=== PATIENT | male | born 1950 | race Caucasian/White ===

== ENCOUNTER 2016-04-02 03:47 | Emergency (ER) | payer MEDICARE, BC ==
[2016-04-02] MEDS ORDERED: Aspirin Low Dose CHEW TAB* 81 MG PO ONE (04:19)
--- NOTE | 2016-04-02 04:48 | ED ---
Sean Espinoza Billy, scribed for Cristian Mao MD on 04/02/16 at 0423 . HPI Chest Pain - HPI Summary HPI Summary: Patient is a 66 year-old male coming to [facility] presenting with constant left anterior chest pain radiating down the left arm starting this morning at 0300. He also describes numbness and tingling in the LUE as well as anxiety due to his symptoms. He reports recent stressors: his 3 days ago. He also states he has had decreased sleep recently due to her passing. - History of Current Complaint Chief Complaint: EDChestPainROMI Time Seen by Provider: 04/02/16 04:17 Hx Obtained From: Patient Onset/Duration: Started Hours Ago, Still Present Time of Onset: 03:00 Timing: Constant Initial Severity: Moderate Current Severity: Moderate Pain Intensity: 6 Pain Scale Used: 0-10 Numeric Chest Pain Location: Left Anterior Chest Pain Radiates: Yes Chest Pain Radiates To:: Arm Aggravating Factor(s): Nothing Alleviating Factor(s): Nothing Associated Signs and Symptoms: Positive: Recent Stress, Numbness, Tingling - Allergy/Home Medications Allergies/Adverse Reactions: Allergies Allergy/AdvReac Type Severity Reaction Status Date / Time Sulfamethoxazole Allergy Unknown Verified 04/23/14 07:49 w/Trimethoprim Reaction [From Bactrim] Details PMH/Surg Hx/FS Hx/Imm Hx Endocrine/Hematology History: Denies: Hx Diabetes Cardiovascular History: Denies: Hx Hypertension, Hx Pacemaker/ICD Respiratory History: Denies: Hx Asthma History: Denies: Hx Renal Disease Sensory History: Denies: Hx Hearing Aid Psychiatric History: Denies: Hx Panic Disorder - Surgical History Surgery Procedure, Year, and Place: BRONCHOSCOPY Infectious Disease History: No Infectious Disease History: Denies: Traveled Outside the [place] in Last 30 Days - Family History Known Family History: Negative: Cardiac Disease - Social History Alcohol Use: Weekly Substance Use Type: Reports: None Smoking Status (MU): Never Smoked Tobacco Review of Systems Positive: Chest Pain Positive: Paresthesia, Numbness Positive: Anxious All Other Systems Reviewed And Are Negative: Yes Physical Exam Triage Information Reviewed: Yes Vital Signs On Initial Exam: Initial Vitals Temp Pulse Resp BP Pulse Ox 98.4 F 94 20 161/86 98 04/02/16 03:56 04/02/16 03:56 04/02/16 03:56 04/02/16 03:56 04/02/16 03:56 Vital Signs Reviewed: Yes Appearance: Positive: Well-Appearing, No Pain Distress Skin: Positive: Warm Eyes: Positive: [place] ENT: Positive: Hearing grossly normal Neck: Positive: Supple Respiratory/Lung Sounds: Positive: Clear to Auscultation, Breath Sounds Present Cardiovascular: Positive: RRR Abdomen Description: Positive: Nontender, Soft Bowel Sounds: Positive: Present Musculoskeletal: Positive: Strength/ROM Intact Neurological: Positive: Sensory/Motor Intact, Alert, Oriented to Person Place, Time Psychiatric: Positive: Affect/Mood Appropriate Diagnostics - Vital Signs Vital Signs Temp Pulse Resp BP Pulse Ox 04/02/16 03:56 98.4 F 94 20 161/86 98 - Laboratory Result Diagrams: 04/02/16 05:20 04/02/16 05:20 Lab Statement: Any lab studies that have been ordered have been reviewed, and results considered in the medical decision making process. - Radiology CXR Xray Interpretation: No Acute Changes Radiology Interpretation Completed By: ED Physician Re-Evaluation - Re-Evaluation First Eval Re-Evaluation Time: 06:55 - remains pain free Change: Improved Chest Pain Course/Dx - Diagnoses Provider Diagnoses: Chest pain Discharge - Discharge Plan Condition: Stable Disposition: HOME Patient Education Materials: Chest Pain (ED) Referrals: John No MD [Primary Care Provider] - Additional Instructions: RETURN TO THE EMERGENCY ROOM IF SYMPTOMS PERSIST OR WORSEN. The documentation as recorded by the Sean matta Billy accurately reflects the service I personally performed and the decisions made by , Cristian Mao MD.
[2016-04-02 05:32] LABS: Hematocrit 38 % (42-52); Hemoglobin 12.8 g/dl (14.0-18.0); Mean Corpuscular HGB Conc 34 g/dl (31-36); Mean Corpuscular Hemoglobin 30 pg (27-31); Mean Corpuscular Volume 88 fL (80-94); Mean Platelet Volume 9 um3 (7.4-10.4); Red Blood Count 4.31 10^6/ul (4.0-5.4); Red Cell Distribution Width 14 % (10.5-15); White Blood Count 7.1 10^3/ul (3.5-10.8)
[2016-04-02 05:54] LABS: Albumin 3.8 g/dL (3.2-5.2); BUN/Creatinine Ratio 18.6 (8-20); Calcium 8.7 mg/dL (8.6-10.3); EGFR African American 99.9 (>60); EGFR Non-African American 77.7 (>60); Potassium 3.7 mmol/L (3.5-5.0); Total Bilirubin 0.3 mg/dL (0.2-1.0); Total Protein 6.8 g/dL (6.4-8.9)
--- NOTE | 2016-04-02 08:01 | RAD ---
HISTORY: Chest pain COMPARISONS: Chair and February 02, 2014 VIEWS: 2: Frontal dual-energy and lateral views of the chest. FINDINGS: CARDIOMEDIASTINAL SILHOUETTE: The cardiomediastinal silhouette is normal. KWAN: The kwan are normal. PLEURA: The costophrenic angles are sharp. No pleural abnormalities are noted. LUNG PARENCHYMA: There is hyperinflation with flattening of the diaphragm and expansion of the AP diameter of the chest. ABDOMEN: The upper abdomen is clear. There is no subphrenic gas. BONES AND SOFT TISSUES: No bone or soft tissue abnormalities are noted. OTHER: None. IMPRESSION: HYPERINFLATION, CONSISTENT WITH COPD. NO ACTIVE CARDIOPULMONARY DISEASE.
[2016-04-02 09:18] VITALS: BP 119/62
== END 2016-04-02 09:17 | disposition home or self-care (01) ==
LOC: ED 03:47
DX: R07.9 Chest pain, unspecified (principal); R20.9 Unspecified disturbances of skin sensation; F41.9 Anxiety disorder, unspecified; F43.9 Reaction to severe stress, unspecified
CPT/HCPCS: 36415; 71020; 80053; 83605; 84484; 85025; 93005; 99284; A9270-GY

== ENCOUNTER 2018-04-03 09:33 | Emergency (ER) | payer MEDICARE, BC ==
[2018-04-03 09:59] VITALS: BP 142/80
[2018-04-03] MEDS ORDERED: Tetan/Diph/Pertus SYR(Tdap)* 0.5 ML SYR(BOOSTRIX) use SYR IM ONE (10:23)
[2018-04-03] MEDS ORDERED: Lidocaine 2% W/EPI 1:100,000* 20 ML MDV INJ ONE (10:24)
--- NOTE | 2018-04-03 10:36 | UC ---
Bite Injury/Animal HPI - HPI Summary HPI Summary: Patient is a 68-year-old male that was bitten his chin by a tenant's dog this a.m. The dog is a boxer and he bent over to pet it. He is having minimal pain. He is unsure of his last tetanus shot but thinks it has been more than 10 years. The dog's shots are apparently up-to-date. - History of Current Complaint Chief Complaint: UCLaceration Stated Complaint: DOG BITE Time Seen by Provider: 04/03/18 10:15 Hx Obtained From: Patient Severity Currently: Moderate Severity Initially: Mild Pain Intensity: 2 Pain Scale Used: 0-10 Numeric Onset/Duration: Sudden Onset Type of Bite: Pet Has Animal Been Immunized?: Yes Character: Full-Thickness Aggravating Factor(s): Nothing Alleviating Factor(s): Nothing Associated Signs And Symptoms: Positive: Negative Hx of Bite: Provoked by: - bending over to pet dog Animal Available for Observation: Yes Animal Control Notified: Yes - Allergies/Home Medications Allergies/Adverse Reactions: Allergies Allergy/AdvReac Type Severity Reaction Status Date / Time Sulfa (Sulfonamide Allergy Unknown Verified 04/03/18 10:00 Antibiotics) Reaction Details Home Medications: Home Medications Glucosamine Sulfate Dipot Chlr [Gnp Glucosamine Maximum S] 1,000 mg PO DAILY [History Confirmed 04/03/18] PMH/Surg Hx/FS Hx/Imm Hx Previously Healthy: Yes - Surgical History Surgical History: Yes Surgery Procedure, Year, and Place: BRONCHOSCOPY - Family History Known Family History: Positive: Hypertension Negative: Cardiac Disease - Social History Alcohol Use: Occasionally Substance Use Type: None Smoking Status (MU): Never Smoked Tobacco - Immunization History Most Recent Tetanus Shot: unknown Review of Systems All Other Systems Reviewed And Are Negative: Yes Constitutional: Positive: Negative Skin: Positive: Negative Eyes: Positive: Negative ENT: Positive: Negative Respiratory: Positive: Negative Cardiovascular: Positive: Negative Gastrointestinal: Positive: Negative Genitourinary: Positive: Negative Motor: Positive: Negative Neurovascular: Positive: Negative Musculoskeletal: Positive: Negative Neurological: Positive: Negative Psychological: Positive: Negative Physical Exam Triage Information Reviewed: Yes Appearance: Well-Appearing, No Pain Distress, Well-Nourished Vital Signs: Initial Vital Signs Temp 97.5 F 04/03/18 09:56 Pulse 65 04/03/18 09:56 Resp 16 04/03/18 09:56 BP 142/80 04/03/18 09:56 Pulse Ox 98 04/03/18 09:56 Vital Signs Reviewed: Yes Eyes: Positive: Conjunctiva Clear ENT: Positive: Hearing grossly normal. Negative: Nasal congestion, Nasal drainage, Tonsillar swelling, Tonsillar exudate, Muffled voice, Hoarse voice Neck: Positive: Supple, Nontender Respiratory: Positive: Lungs clear, Normal breath sounds, No respiratory distress Cardiovascular: Positive: RRR, No Murmur Abdominal Exam: Normal Musculoskeletal: Positive: ROM Intact, No Edema Neurological: Positive: Alert Psychological Exam: Normal Skin Exam: Other - see image Images Head: 1 - lac Procedures - Laceration/Wound Repair 2 Location: Other - submental Description: Irregular - "Y"shaped Anesthesia: Local, 2.0%, Epi Length, Depth and Shape: total length 2.1 CM, Depth 0.5 mm, Betadine Prep?: Yes Irrigated w/ Saline (ccs): 400 Laceration/Wound Explored: clean Closure: Single Layer Suture Type: Nylon - 7 6-0 nylon sutures Bite Injury Course/Dx - Differential Dx/Diagnosis Provider Diagnosis: Laceration of skin of chin, Dog bite of chin Discharge - Sign-Out/Discharge Documenting (check all that apply): Patient Departure All imaging exams completed and their final reports reviewed: No Studies - Discharge Plan Condition: Stable Disposition: HOME Patient Education Materials: Laceration (ED) Referrals: Shauna Bustillos MD [Primary Care Provider] - Additional Instructions: starting tomorrow gently clean with soap and water twice daily apply a thin film of antibiotic oint after drying wound ( I like aquaphor healing ointment or polysporin) bandaid after a few days you don't knee the bandaid any more recheck DEEPAK for concerns of infection increased pain swelling redness purulent drainage since you are heading out of town Tuesday I suggest you come in Sat evening for suture removal We may need to apply steristrips at that time tetanus up dated take augmentin with a glass or two of water - Billing Disposition and Condition Condition: STABLE Disposition: Home
== END 2018-04-03 11:40 | disposition home or self-care (01) ==
LOC: UCEAST 09:33
DX: S01.81XA Laceration without foreign body of other part of head, initial encounter (principal); W54.0XXA Bitten by dog, initial encounter; Y92.9 Unspecified place or not applicable; Z23 Encounter for immunization; Z88.2 Allergy status to sulfonamides
CPT/HCPCS: 12011; 90715; 99212; G0463